=== PATIENT | female | born 1970 | race Caucasian/White ===

== ENCOUNTER 2021-10-04 02:00 | Emergency (ER) | payer OTHER ==
[~2021-10-04] VITALS: Ht 162.6 cm; Wt 61.4 kg
[2021-10-04] MEDS ORDERED: LORazepam 1 MG tablet PO ONE ×2 (02:15→04:35)
[2021-10-04] MEDS ORDERED: diphenhydrAMINE 25mg capsule PO ONE (02:15)
[2021-10-04 05:11] LABS: BASOPHILS % (AUTO) 0.3 % (0-1); EOSINOPHILS % (AUTO) 0 % (0-6); HEMATOCRIT 37.7 % (35.0-45.0); LYMPHOCYTES # (AUTO) 1.9 X10'3 (1.1-4.8); MEAN CORPUSCULAR HEMOGLOBIN 30.6 PG (27.0-31.0); MEAN CORPUSCULAR HGB CONC 34.6 g/dL (33.0-36.5); MEAN CORPUSCULAR VOLUME 88.5 FL (78-98); MEAN PLATELET VOLUME 8.4 FL (7.4-10.4); MONOCYTES # (AUTO) 1.2 X10'3 (0-0.9); MONOCYTES % (AUTO) 13.9 % (2-12); NEUTROPHILS # (AUTO) 5.8 X10'3 (1.8-7.7); NEUTROPHILS % (AUTO) 64.8 % (42-75); PLATELET COUNT 249 X10'3 (140-440); RED BLOOD COUNT 4.26 X10'6 (4.20-5.60); RED CELL DISTRIBUTION WIDTH 15.3 % (11.5-14.5); WHITE BLOOD COUNT 8.9 X10'3 (4.5-11.0)
[2021-10-04 05:19] LABS: ALANINE AMINOTRANSFERASE 154 U/L (12-78); ALBUMIN 3.9 G/DL (3.4-5.0); ALKALINE PHOSPHATASE 101 IU/L (46-116); ANION GAP 13 (8-16); ASPARTATE AMINO TRANSFERASE 348 U/L (10-37); BILIRUBIN,TOTAL 1.8 MG/DL (0.1-1.0); BLOOD UREA NITROGEN 33 MG/DL (7-18); BUN/CREATININE RATIO 31.1 (6.6-38.0); CALCIUM 10.4 MG/DL (8.5-10.1); CHLORIDE 93 MMOL/L (99-107); CREATININE 1.06 MG/DL (0.40-0.90); ETHANOL 0.058 GM/DL (0.0-0.010); GLUCOSE 117 MG/DL (70-104); POTASSIUM 3.1 MMOL/L (3.5-5.1); SODIUM 131 MMOL/L (135-145); TOTAL CARBON DIOXIDE 25.1 MMOL/L (24-32); TOTAL PROTEIN 7.7 G/DL (6.4-8.2); eGFR 54 ML/MIN
--- NOTE | 2021-10-04 10:08 | NUR ---
0845 patient transfered to overflow, patient place in bed 21, patient rocking slight back and forth with some non sencical wording, patient will not answer yes or no answers. Pending UA, urine cup at bedside, pct aware UA still needed in the event pct walks patient to bathroom
[2021-10-04 10:41] LABS: URINE HCG NEGATIVE (NEG)
--- NOTE | 2021-10-04 10:49 | NUR ---
Patient resting in bed, patient ambulated to the restroom and was able to leave a sample, sample sent to the lab. Patient responds to her name but goes right back to sleep.
[2021-10-04 11:11] LABS: URINE AMPHETAMINE SCREEN POSITIVE (Neg); URINE BARBITUATE SCREEN NEGATIVE (Neg); URINE BENZODIAZEPINES SCREEN NEGATIVE (Neg); URINE CANNABINOID SCREEN NEGATIVE (Neg); URINE COCAINE SCREEN NEGATIVE (Neg); URINE METHADONE SCREEN NEGATIVE (Neg); URINE OPIATE SCREEN NEGATIVE (Neg); URINE PHENCYCLIDINE SCREEN NEGATIVE (Neg)
[2021-10-04 11:19] LABS: CLARITY,URINE CLEAR (Clear); COLOR,URINE YELLOW (Yellow); UA COLLECTION TYPE CLN CATCH MIDSTREAM
[2021-10-04 11:20] LABS: GLUCOSE, URINE NEGATIVE (Neg); KETONES,URINE NEGATIVE (Neg); LEUKOCYTE ESTERASE ,URINE NEGATIVE (Neg); NITRITES, URINE NEGATIVE (Neg); OCCULT BLOOD,URINE LARGE (Neg); PROTEIN,URINE TRACE mg/dl (Neg); UROBILINOGEN,URINE 0.2 E.U/dL (0.2-1.0)
[2021-10-04 11:28] LABS: BACTERIA,URINE 1+ /HPF (Neg); FINE GRANULAR CAST 0-3 /LPF (NEGATIVE); HYALINE CASTS 0-3 /LPF (NEGATIVE); MUCUS STRANDS NONE SEEN /LPF (Neg); RBC,URINE 0-2 /HPF (0-2); SQUAMOUS EPITHELIAL CELL,UR FEW /LPF (FEW); WBC,URINE 0-4 /HPF (0-4)
--- NOTE | 2021-10-04 12:35 | NUR ---
This amanda noted patient awake, so I took the opportunity to interview patient on how she got to [facility] etc. Patient states she moved here from "[place] with her boyfriend, then the did not work out so she slept in a hotel room until she ran out of money. After missing the bus home to [facility], romy meet up with a homeless man, the homeless man then accused her of something to do with guns, then the police came and took her to the [facility], which was suposed to be females only, when patient was entering the [place] [facility] [place] she thought she heard her ex boyfriend having sex with them women at [facility]. Alexander went on to say she calledd 911 and with in one min the police were there, the police care had women tied up in the back seat..........this is how I ended up here. Patient states she only use meth a few days ago and does not trust the person she got it from. Patient also stated that she has never been on a 5150 hold. Patient states she has a bus ticket home and her mom can help her figure it out if she can call her. It is unclear how much of what she reported is true.
--- NOTE | 2021-10-04 13:55 | NUR ---
Patient asked for a shower, this wrtier explained to patient that she can use these warm wipes and do a "bird bath" in the restroom. Patient was very happy to be able to get a bath of some sort. The further away from her meth use the clearer patient is getting. Loida has called family in [facility] and left messages on two different numbers.
--- NOTE | 2021-10-04 15:30 | NUR ---
Patient is sleeping on her left side, no s/s of distress easily wakes by her first name
--- NOTE | 2021-10-04 17:07 | NUR ---
Per [facility] patient will be discharging early this evenint to the [facility], patient is making arrangements to travel via [employer]. Patient denies S/I H/I and agrees with after care plan.
--- NOTE | 2021-10-04 18:52 | NUR ---
cab called and patient got dressed with all her belongings and is waiting outside for [employer].
[2021-10-04 18:53] VITALS: BP 134/91
== END 2021-10-04 18:54 | disposition home or self-care (01) ==
LOC: ER 02:01
DX: R45.851 Suicidal ideations (principal); Z20.822 Contact with and (suspected) exposure to COVID-19; F15.10 Other stimulant abuse, uncomplicated; R19.7 Diarrhea, unspecified; R06.02 Shortness of breath; R05.9 Cough, unspecified; J02.9 Acute pharyngitis, unspecified; Z98.890 Other specified postprocedural states
CPT/HCPCS: 36415; 74176; 80053; 80305; 80320; 81001; 81025; 85025; 87635; 99285; C9803; Q0163